=== PATIENT | female | born 2000 | race Hispanic/Latino ===

== ENCOUNTER 2023-10-18 18:53 | Emergency (ER) | payer SELFPAY ==
[~2023-10-18] VITALS: Ht 157.5 cm; Wt 75.3 kg
[2023-10-18 19:31] LABS: STREPTOCOCCUS GRP A ANTIGEN NEGATIVE (NEGATIVE)
[2023-10-18] MEDS: ACETAMINOPHEN 325 MG TAB PO STA (19:35)
[2023-10-18 19:40] LABS: INFLUENZAE A&B ANTIGEN (RAPID) NEGATIVE (NEGATIVE)
[2023-10-18] MEDS ORDERED: AZITHROMYCIN250 MG PO (20:00)
[2023-10-18 20:24] VITALS: BP 127/88; PULSE 102; RESP 19; TEMP 100; O2SAT 100
== END 2023-10-18 20:25 | disposition home or self-care (01) ==
LOC: ER 19:00
DX: R50.9 Fever, unspecified (principal); J06.9 Acute upper respiratory infection, unspecified; R05.9 Cough, unspecified; R53.81 Other malaise; Z11.52 Encounter for screening for COVID-19
CPT/HCPCS: 83518; 87070; 87400; 99283; U0002